=== PATIENT | female | born 1980 | race Hispanic/Latino ===

== ENCOUNTER 2023-09-20 11:42 | Emergency (ER) | payer MEDICAID, OTHER ==
[~2023-09-20] VITALS: Ht 152.4 cm; Wt 70.3 kg
[2023-09-20] MEDS: ACETAMINOPHEN 325 MG TAB PO STA (13:19)
[2023-09-20 14:37] VITALS: BP 115/84; PULSE 78; RESP 18; O2SAT 98
== END 2023-09-20 14:38 | disposition home or self-care (01) ==
LOC: EDH 11:42
DX: M25.571 Pain in right ankle and joints of right foot (principal); M25.561 Pain in right knee
CPT/HCPCS: 73562; 73600